=== PATIENT | male | born 1955 | race Hispanic/Latino ===

== ENCOUNTER → 2018-05-17 | Outpatient (CLI) | payer OTHER | LOC: WCC 12:44 | PROVIDERS: ATTEND Family Medicine Adult Medicine | DX: M27.8 Other specified diseases of jaws (principal); T66.XXXA Radiation sickness, unspecified, initial encounter; Y84.2 Radiological procedure and radiotherapy as the cause of abnormal reaction of the patient, or of later complication, without mention of misadventure at the time of the procedure; Z01.810 Encounter for preprocedural cardiovascular examination; Z01.811 Encounter for preprocedural respiratory examination ==

== ENCOUNTER → 2018-06-07 | Outpatient (CLI) | payer OTHER | LOC: WCC 11:33 | PROVIDERS: ATTEND Family Medicine Adult Medicine | DX: T66.XXXA Radiation sickness, unspecified, initial encounter (principal); Y84.2 Radiological procedure and radiotherapy as the cause of abnormal reaction of the patient, or of later complication, without mention of misadventure at the time of the procedure; M27.8 Other specified diseases of jaws; R22.32 Localized swelling, mass and lump, left upper limb; Z01.810 Encounter for preprocedural cardiovascular examination; Z01.811 Encounter for preprocedural respiratory examination ==

== ENCOUNTER → 2018-06-12 | Outpatient (CLI) | payer OTHER | LOC: WCC 11:59 | PROVIDERS: ATTEND Family Medicine Adult Medicine | DX: M27.8 Other specified diseases of jaws (principal); T66.XXXA Radiation sickness, unspecified, initial encounter; Y84.2 Radiological procedure and radiotherapy as the cause of abnormal reaction of the patient, or of later complication, without mention of misadventure at the time of the procedure; Z01.810 Encounter for preprocedural cardiovascular examination; Z01.811 Encounter for preprocedural respiratory examination ==

== ENCOUNTER → 2018-06-15 | Outpatient (CLI) | payer OTHER | LOC: WCC 15:30 | PROVIDERS: ATTEND Family Medicine | DX: M27.8 Other specified diseases of jaws (principal); T66.XXXA Radiation sickness, unspecified, initial encounter; Y84.2 Radiological procedure and radiotherapy as the cause of abnormal reaction of the patient, or of later complication, without mention of misadventure at the time of the procedure; D11.0 Benign neoplasm of parotid gland; Z01.810 Encounter for preprocedural cardiovascular examination; Z01.811 Encounter for preprocedural respiratory examination ==

== ENCOUNTER → 2018-06-18 | Outpatient (CLI) | payer OTHER | LOC: WCC 14:32 | PROVIDERS: ATTEND Family Medicine | DX: M27.8 Other specified diseases of jaws (principal); T66.XXXA Radiation sickness, unspecified, initial encounter; D11.0 Benign neoplasm of parotid gland; Y84.2 Radiological procedure and radiotherapy as the cause of abnormal reaction of the patient, or of later complication, without mention of misadventure at the time of the procedure; Z01.810 Encounter for preprocedural cardiovascular examination; Z01.811 Encounter for preprocedural respiratory examination ==

== ENCOUNTER → 2018-06-19 | Outpatient (CLI) | payer OTHER | LOC: WCC 11:09 | PROVIDERS: ATTEND Family Medicine | DX: M27.8 Other specified diseases of jaws (principal); T66.XXXA Radiation sickness, unspecified, initial encounter; D11.0 Benign neoplasm of parotid gland; Y84.2 Radiological procedure and radiotherapy as the cause of abnormal reaction of the patient, or of later complication, without mention of misadventure at the time of the procedure; Z01.810 Encounter for preprocedural cardiovascular examination; Z01.811 Encounter for preprocedural respiratory examination ==

== ENCOUNTER → 2018-06-20 | Outpatient (CLI) | payer OTHER | LOC: WCC 14:20 | PROVIDERS: ATTEND Family Medicine | DX: M27.8 Other specified diseases of jaws (principal); T66.XXXA Radiation sickness, unspecified, initial encounter; Y84.2 Radiological procedure and radiotherapy as the cause of abnormal reaction of the patient, or of later complication, without mention of misadventure at the time of the procedure; D11.0 Benign neoplasm of parotid gland; Z01.810 Encounter for preprocedural cardiovascular examination; Z01.811 Encounter for preprocedural respiratory examination ==

== ENCOUNTER → 2018-06-21 | Outpatient (CLI) | payer OTHER | LOC: WCC 10:28 | PROVIDERS: ATTEND Family Medicine | DX: M27.8 Other specified diseases of jaws (principal); T66.XXXA Radiation sickness, unspecified, initial encounter; Y84.2 Radiological procedure and radiotherapy as the cause of abnormal reaction of the patient, or of later complication, without mention of misadventure at the time of the procedure; D11.0 Benign neoplasm of parotid gland; Z01.810 Encounter for preprocedural cardiovascular examination; Z01.811 Encounter for preprocedural respiratory examination ==

== ENCOUNTER → 2018-06-22 | Outpatient (CLI) | payer OTHER | LOC: WCC 13:43 | PROVIDERS: ATTEND Family Medicine | DX: M27.8 Other specified diseases of jaws (principal); T66.XXXA Radiation sickness, unspecified, initial encounter; D11.0 Benign neoplasm of parotid gland; Y84.2 Radiological procedure and radiotherapy as the cause of abnormal reaction of the patient, or of later complication, without mention of misadventure at the time of the procedure; Z01.810 Encounter for preprocedural cardiovascular examination; Z01.811 Encounter for preprocedural respiratory examination ==

== ENCOUNTER → 2018-06-25 | Outpatient (CLI) | payer OTHER | LOC: WCC 10:57 | PROVIDERS: ATTEND Family Medicine | DX: M27.8 Other specified diseases of jaws (principal); T66.XXXA Radiation sickness, unspecified, initial encounter; Y84.2 Radiological procedure and radiotherapy as the cause of abnormal reaction of the patient, or of later complication, without mention of misadventure at the time of the procedure; D11.0 Benign neoplasm of parotid gland; Z01.810 Encounter for preprocedural cardiovascular examination; Z01.811 Encounter for preprocedural respiratory examination ==

== ENCOUNTER → 2018-06-26 | Outpatient (CLI) | payer OTHER | LOC: WCC 08:14 | PROVIDERS: ATTEND Family Medicine | DX: M27.8 Other specified diseases of jaws (principal); T66.XXXA Radiation sickness, unspecified, initial encounter; D11.0 Benign neoplasm of parotid gland; Y84.2 Radiological procedure and radiotherapy as the cause of abnormal reaction of the patient, or of later complication, without mention of misadventure at the time of the procedure; Z01.810 Encounter for preprocedural cardiovascular examination; Z01.811 Encounter for preprocedural respiratory examination ==

== ENCOUNTER → 2018-06-27 | Outpatient (CLI) | payer OTHER | LOC: WCC 11:18 | PROVIDERS: ATTEND Family Medicine | DX: M27.8 Other specified diseases of jaws (principal); T66.XXXA Radiation sickness, unspecified, initial encounter; D11.0 Benign neoplasm of parotid gland; Y84.2 Radiological procedure and radiotherapy as the cause of abnormal reaction of the patient, or of later complication, without mention of misadventure at the time of the procedure; Z01.810 Encounter for preprocedural cardiovascular examination; Z01.811 Encounter for preprocedural respiratory examination ==

== ENCOUNTER → 2018-06-28 | Outpatient (CLI) | payer OTHER | LOC: WCC 09:08 | PROVIDERS: ATTEND Family Medicine | DX: M27.8 Other specified diseases of jaws (principal); T66.XXXA Radiation sickness, unspecified, initial encounter; Y84.2 Radiological procedure and radiotherapy as the cause of abnormal reaction of the patient, or of later complication, without mention of misadventure at the time of the procedure; D11.0 Benign neoplasm of parotid gland; Z01.810 Encounter for preprocedural cardiovascular examination; Z01.811 Encounter for preprocedural respiratory examination ==

== ENCOUNTER → 2018-06-29 | Outpatient (CLI) | payer OTHER | LOC: WCC 11:37 | PROVIDERS: ATTEND Family Medicine | DX: M27.8 Other specified diseases of jaws (principal); T66.XXXA Radiation sickness, unspecified, initial encounter; D11.0 Benign neoplasm of parotid gland; Y84.2 Radiological procedure and radiotherapy as the cause of abnormal reaction of the patient, or of later complication, without mention of misadventure at the time of the procedure; Z01.810 Encounter for preprocedural cardiovascular examination; Z01.811 Encounter for preprocedural respiratory examination ==

== ENCOUNTER → 2018-07-02 | Outpatient (CLI) | payer OTHER | LOC: WCC 10:56 | PROVIDERS: ATTEND Family Medicine | DX: M27.8 Other specified diseases of jaws (principal); T66.XXXA Radiation sickness, unspecified, initial encounter; Y84.2 Radiological procedure and radiotherapy as the cause of abnormal reaction of the patient, or of later complication, without mention of misadventure at the time of the procedure; D11.0 Benign neoplasm of parotid gland; Z01.810 Encounter for preprocedural cardiovascular examination; Z01.811 Encounter for preprocedural respiratory examination ==

== ENCOUNTER → 2018-07-03 | Outpatient (CLI) | payer OTHER | LOC: WCC 11:18 | PROVIDERS: ATTEND Family Medicine | DX: M27.8 Other specified diseases of jaws (principal); T66.XXXA Radiation sickness, unspecified, initial encounter; Y84.2 Radiological procedure and radiotherapy as the cause of abnormal reaction of the patient, or of later complication, without mention of misadventure at the time of the procedure; D11.0 Benign neoplasm of parotid gland; Z01.810 Encounter for preprocedural cardiovascular examination; Z01.811 Encounter for preprocedural respiratory examination ==

== ENCOUNTER → 2018-07-04 | Outpatient (CLI) | payer OTHER | LOC: WCC 14:07 | PROVIDERS: ATTEND Family Medicine | DX: M27.8 Other specified diseases of jaws (principal); T66.XXXA Radiation sickness, unspecified, initial encounter; Y84.2 Radiological procedure and radiotherapy as the cause of abnormal reaction of the patient, or of later complication, without mention of misadventure at the time of the procedure; D11.0 Benign neoplasm of parotid gland; Z01.810 Encounter for preprocedural cardiovascular examination; Z01.811 Encounter for preprocedural respiratory examination ==

== ENCOUNTER → 2018-07-05 | Outpatient (CLI) | payer OTHER | LOC: WCC 10:43 | PROVIDERS: ATTEND Family Medicine | DX: M27.8 Other specified diseases of jaws (principal); T66.XXXA Radiation sickness, unspecified, initial encounter; Y84.2 Radiological procedure and radiotherapy as the cause of abnormal reaction of the patient, or of later complication, without mention of misadventure at the time of the procedure; D11.0 Benign neoplasm of parotid gland; Z01.810 Encounter for preprocedural cardiovascular examination; Z01.811 Encounter for preprocedural respiratory examination ==

== ENCOUNTER → 2018-07-06 | Outpatient (CLI) | payer OTHER | LOC: WCC 09:42 | PROVIDERS: ATTEND Family Medicine | DX: M27.8 Other specified diseases of jaws (principal); T66.XXXA Radiation sickness, unspecified, initial encounter; Y84.2 Radiological procedure and radiotherapy as the cause of abnormal reaction of the patient, or of later complication, without mention of misadventure at the time of the procedure; D11.0 Benign neoplasm of parotid gland; Z01.810 Encounter for preprocedural cardiovascular examination; Z01.811 Encounter for preprocedural respiratory examination ==

== ENCOUNTER → 2018-07-10 | Outpatient (CLI) | payer OTHER | LOC: WCC 11:26 | PROVIDERS: ATTEND Family Medicine | DX: M27.8 Other specified diseases of jaws (principal); T66.XXXA Radiation sickness, unspecified, initial encounter; Y84.2 Radiological procedure and radiotherapy as the cause of abnormal reaction of the patient, or of later complication, without mention of misadventure at the time of the procedure; D11.0 Benign neoplasm of parotid gland; Z01.810 Encounter for preprocedural cardiovascular examination; Z01.811 Encounter for preprocedural respiratory examination ==

== ENCOUNTER → 2018-07-11 | Outpatient (CLI) | payer OTHER | LOC: WCC 11:46 | PROVIDERS: ATTEND Family Medicine | DX: M27.8 Other specified diseases of jaws (principal); T66.XXXA Radiation sickness, unspecified, initial encounter; D11.0 Benign neoplasm of parotid gland; Y84.2 Radiological procedure and radiotherapy as the cause of abnormal reaction of the patient, or of later complication, without mention of misadventure at the time of the procedure; Z01.810 Encounter for preprocedural cardiovascular examination; Z01.811 Encounter for preprocedural respiratory examination ==